=== PATIENT | male | born 1975 | race American Indian/Alaskan Native ===

== ENCOUNTER 2019-12-20 15:04 | Emergency (ER) | payer SELFPAY ==
[2019-12-20] MEDS ORDERED: AMOXICILLIN/K CLAV 875/125MG TAB PO ONE (21:18)
[2019-12-20] MEDS ORDERED: IBUPROFEN 600 MG TAB PO ONE (21:18)
--- NOTE | 2019-12-20 21:19 | Emergency Department Report ---
ED General Adult HPI - General Chief complaint: Dental/Oral Stated complaint: SWELLING LT CHEEK Source: patient Mode of arrival: Ambulatory Limitations: No Limitations - History of Present Illness Initial comments: Patient is a 44-year-old -[place] male with no past medical history who presents to the ED with complaint of acute onset persistent anterior left cervical lymph node pain with mild swelling for the last 12 hours. Patient denies nasal and sinus congestion, sore throat, cough, dental pain, dizziness, syncope, chest pain, shortness of breath, ear pain, dizziness, abdominal pain, nausea and vomiting or change in vision MD Complaint: left anterior cervical lymph node pain and swelling -: Sudden, hour(s) (12) Location: neck Radiation: non-radiation Severity scale (0 -10): 5 Quality: aching, sharp Consistency: constant Improves with: none Worsens with: none Associated Symptoms: denies other symptoms. denies: confusion, chest pain, cough, diaphoresis, fever/chills, headaches, loss of appetite, malaise, nausea/vomiting, seizure, shortness of breath, syncope, other Treatments Prior to Arrival: none - Related Data Previous Rx's Medication Instructions Recorded Last Taken Type Amoxicillin [Trimox CAP] 500 mg PO Q8H #30 capsule 12/20/19 Unknown Rx Ibuprofen [Motrin] 600 mg PO Q8H PRN #20 tablet 12/20/19 Unknown Rx predniSONE [Deltasone] 40 mg PO QDAY #10 tab 12/20/19 Unknown Rx ED Review of Systems ROS: Stated complaint: SWELLING LT CHEEK Other details as noted in HPI Constitutional: denies: chills, fever Eyes: denies: eye pain, eye discharge, vision change ENT: denies: ear pain, throat pain Respiratory: denies: cough, shortness of breath, wheezing Cardiovascular: denies: chest pain, palpitations Endocrine: no symptoms reported Gastrointestinal: denies: abdominal pain, nausea, diarrhea Genitourinary: denies: urgency, dysuria Musculoskeletal: other (Anterior left cervical lymph node pain and swelling). denies: back pain, joint swelling, arthralgia Skin: denies: rash, lesions Neurological: headache. denies: weakness, paresthesias Psychiatric: denies: anxiety, depression Hematological/Lymphatic: denies: easy bleeding, easy bruising ED Past Medical Hx - Medications Home Medications: Home Medications Medication Instructions Recorded Confirmed Last Taken Type Amoxicillin [Trimox CAP] 500 mg PO Q8H #30 capsule 12/20/19 Unknown Rx Ibuprofen [Motrin] 600 mg PO Q8H PRN #20 tablet 12/20/19 Unknown Rx predniSONE [Deltasone] 40 mg PO QDAY #10 tab 12/20/19 Unknown Rx ED Physical Exam - General Limitations: No Limitations General appearance: alert, in no apparent distress - Head Head exam: Present: atraumatic, normocephalic, normal inspection - Eye Eye exam: Present: normal appearance, PERRL, EOMI Pupils: Present: normal accommodation - ENT ENT exam: Present: normal exam, normal orophraynx, mucous membranes moist, TM's normal bilaterally, normal external ear exam - Neck Neck exam: Present: normal inspection, full ROM, lymphadenopathy (Anterior left cervical lymphadenopathy). Absent: tenderness, meningismus - Respiratory Respiratory exam: Present: normal lung sounds bilaterally. Absent: respiratory distress, wheezes, rales, rhonchi, chest wall tenderness, accessory muscle use, decreased breath sounds - Cardiovascular Cardiovascular Exam: Present: regular rate, normal rhythm, normal heart sounds. Absent: systolic murmur, diastolic murmur, rubs, gallop - GI/Abdominal GI/Abdominal exam: Present: soft, normal bowel sounds. Absent: tenderness, guarding, rebound, hyperactive bowel sounds, hypoactive bowel sounds, organomegaly - Extremities Exam Extremities exam: Present: normal inspection, full ROM, normal capillary refill - Back Exam Back exam: Present: normal inspection, full ROM. Absent: tenderness, CVA tenderness (R), CVA tenderness (L), muscle spasm, paraspinal tenderness, vertebral tenderness - Neurological Exam Neurological exam: Present: alert, oriented X3, CN II-XII intact, normal gait, reflexes normal - Psychiatric Psychiatric exam: Present: normal affect, normal mood - Skin Skin exam: Present: warm, dry, intact, normal color. Absent: rash ED Course Vital Signs 12/20/19 15:47 Temperature 97.6 F Pulse Rate 80 Respiratory 20 Rate Blood Pressure 113/72 [Right] O2 Sat by Pulse 96 Oximetry ED Medical Decision Making - Medical Decision Making This is a 44-year-old -[place] male with no past medical history who presents to the ED with complaint of acute onset persistent anterior left cer vical lymph node pain with mild swelling for the last 12 hours. In the ED, patient is alert and oriented x3 and is not in distress. Patient was treated for pain in the ED and discharged home on pain medications and prophylactic antibiotics based on the physical exam findings. Patient was advised to follow- up with his primary care physician in 5 to 7 days for reevaluation or return to the ED immediately if symptoms get worse. - Differential Diagnosis Lymphadenopathy; tonsillitis; URI; pharyngitis Critical care attestation.: If time is entered above; I have spent that time in minutes in the direct care of this critically ill patient, excluding procedure time. ED Disposition Clinical Impression: Left cervical lymphadenopathy Disposition: TO HOME OR SELFCARE Is pt being admited?: No Does the pt Need Aspirin: No Condition: Stable Instructions: Lymphadenopathy (ED), Adenitis (ED) Additional Instructions: Take medication with food, drink plenty of fluids and follow-up with your primary care physician in 5 to 7 days for reevaluation. Return to the ED immediately if symptoms get worse. Prescriptions: predniSONE [Deltasone] 40 mg PO QDAY #10 tab Ibuprofen [Motrin] 600 mg PO Q8H PRN #20 tablet PRN Reason: Pain Amoxicillin [Trimox CAP] 500 mg PO Q8H #30 capsule Referrals: [facility] [Provider Group] - 7-10 days Time of Disposition: 21:19 Print Language: SLOVENIAN
[2019-12-20 21:50] VITALS: BP 140/82
== END 2019-12-20 21:50 | disposition home or self-care (01) ==
LOC: ED 15:04
DX: R59.0 Localized enlarged lymph nodes (principal); Z79.899 Other long term (current) drug therapy; Z91.013 Allergy to seafood; Z91.041 Radiographic dye allergy status
CPT/HCPCS: 99282